=== PATIENT | male | born 1940 | race Caucasian/White ===

== ENCOUNTER 2018-10-18 08:24 | Outpatient (CLI) | payer MEDICARE, OTHER | END 2018-10-18 08:25 | disposition home or self-care (01) | LOC: RT 08:24 | PROVIDERS: ATTEND Internal Medicine Gastroenterology | DX: Z86.010 Personal history of colon polyps (principal); I10 Essential (primary) hypertension | CPT/HCPCS: 93005 ==

== ENCOUNTER 2018-10-28 11:59 | Day surgery (SDC) | payer MEDICARE, OTHER ==
[2018-10-28] MEDS ORDERED: LACTATED RINGERS 1,000 ML IV ONE (12:25)
[2018-10-28] MEDS ORDERED: fentaNYL 250 MCG/5 ML VIAL IVP ONE (13:53)
[2018-10-28] MEDS ORDERED: MIDAZOLAM 2 MG/2 ML VIAL IVP ONE (13:53)
[2018-10-28 14:22] VITALS: BP 122/75
== END 2018-10-28 12:00 | disposition home or self-care (01) ==
LOC: SDS 11:59
PROVIDERS: ATTEND Internal Medicine Gastroenterology
PROC: 0DBM8ZZ Excision of Descending Colon, Via Natural or Artificial Opening Endoscopic (ICD-10-PCS; principal; 2018-10-28 13:00)
DX: Z12.11 Encounter for screening for malignant neoplasm of colon (principal); D12.4 Benign neoplasm of descending colon; K57.30 Diverticulosis of large intestine without perforation or abscess without bleeding; I10 Essential (primary) hypertension; E78.5 Hyperlipidemia, unspecified; J45.909 Unspecified asthma, uncomplicated; Z87.891 Personal history of nicotine dependence; C61 Malignant neoplasm of prostate
CPT/HCPCS: 45380; J3010; J7120

== ENCOUNTER 2024-02-03 07:00 | Outpatient (CLI) | payer MEDICARE, OTHER ==
--- NOTE | 2024-02-03 15:50 | XRAY Report ---
PROCEDURE: Shoulder 2+V RT INDICATIONS: SPRAIN OF RIGHT SHOULDER TECHNIQUE: 3 views of the shoulder were acquired. COMPARISON: None. FINDINGS: Bones: No fractures or dislocations. Moderate acromioclavicular joint and glenohumeral joint osteop hytic changes are seen. No suspicious bony lesions. Visualized ribs appear intact. Soft tissues: No suspicious soft tissue calcifications. The visualized lungs are within normal limi ts. IMPRESSION: No acute bony abnormality. Moderate right shoulder joint osteoarthritis. Reviewed by: Jitendra Krishnamurthy MD on 02/03/2024 3:49 PM PDT Approved by: Jitendra Krishnamurthy MD on 02/03/2024 3:49 PM PDT Station ID: [id number]
== END 2024-02-03 23:59 | disposition home or self-care (01) ==
LOC: DI.S 07:00
PROVIDERS: ATTEND Physician Assistant Medical
DX: S43.491A Other sprain of right shoulder joint, initial encounter (principal); M19.011 Primary osteoarthritis, right shoulder